=== PATIENT | female | born 1955 | race Caucasian/White ===

== ENCOUNTER 2017-04-07 09:30 | Outpatient (CLI) | payer MEDICARE ==
--- NOTE | 2017-04-07 17:37 | NM ---
TRIPLE PHASE BONE SCAN OF THE HANDS WITH DELAYED WHOLE BODY BONE SCAN: Date: 04/07/17 HISTORY: 61-year-old female with left wrist pain. Patient had bone removed for grafting on the third left fin keegan due to accident. COMPARISON: 02/04/13. RADIOPHARMACEUTICAL: 33 mCi technetium-99m MDP injected intravenously. FINDINGS: There is increased flow and blood pooling in the radial aspect of the right wrist. No abnormal blood flow or blood pooling is seen in the left wrist. Delayed images demonstrate focally increased uptake in the radial aspect of the right wrist. A focus of increased uptake is also noted in the distal right radiocarpal region. This was not seen on the previous study. Delayed images also demonstrate focally increased uptake in the radial aspect of the left wrist, likely in the scaphoid bone. The remainder of the whole body images demonstrate increased uptake consistent with degenerative chris nges in the shoulders, elbows, ankles, and feet. Periodontal disease is again seen. Tracer excretion through the kidneys is within normal limits. IMPRESSION: 1. Positive triple phase bone scan involving the radial aspect of the right wrist. Differential faby gnosis includes recent fracture, intervention, or infection. Clinical and radiographic correlation i s recommended. 2. New focal increased uptake in the distal right radiocarpal region, which is nonspecific and shou ld be evaluated with plain radiographs. 3. New focus of increased uptake in the radial aspect of the left wrist (on delayed images only) in the left scaphoid bone. Since no definite plain film abnormality is seen on the x-rays of 03/17/17 from [facility], further evaluation with MRI would be helpful. POS: TONY
== END 2017-04-07 09:31 | disposition home or self-care (01) ==
LOC: NM 09:30
PROVIDERS: ATTEND Specialist
DX: M25.532 Pain in left wrist (principal)
CPT/HCPCS: 78315; A9503

== ENCOUNTER 2018-05-05 13:47 | Outpatient (CLI) | payer MEDICARE | END 2018-05-05 13:48 | disposition home or self-care (01) | LOC: BICMAMMO 13:47 | PROVIDERS: ATTEND Specialist | DX: Z12.31 Encounter for screening mammogram for malignant neoplasm of breast (principal); Z98.890 Other specified postprocedural states | CPT/HCPCS: 77063; 77067 ==

== ENCOUNTER 2018-09-08 05:43 | Day surgery (SDC) | payer MEDICARE ==
[2018-09-07 15:29] VITALS: BMI 31.6
[2018-09-08] MEDS ORDERED: Fentanyl 100 MCG/2 ML VIAL ONE ×2 (06:18→07:15)
[2018-09-08] MEDS ORDERED: Midazolam HCl 2 mg/2 ml Vial ONE ×2 (06:18→07:15)
[2018-09-08] MEDS ORDERED: Bacitracin Zinc Ointment 30 gm TUBE ONE (06:24)
[2018-09-08] MEDS ORDERED: Sodium Chloride 0.9% 10 ML ONE (06:24)
[2018-09-08] MEDS ORDERED: Bupivacaine PF 0.5% 30 ML VIAL ONE (06:25)
[2018-09-08 06:43] LABS: #Basophils 0.1 thou/uL (0.0-0.2); #Lymphocytes 1.7 thou/uL (1.20-3.40); #Monocytes 0.3 thou/uL (0.11-0.59); #Neutrophils 3.4 thou/uL (1.40-6.50); %Basophils 1.4 % (0.0-1.0); %Eosinophils 15.8 % (0.0-10.0); %Lymphocytes 25.3 % (21.0-51.0); %Monocytes 4.8 % (0.0-10.0); %Neutrophils 52.7 % (42.0-75.0); Hemoglobin 11.9 g/dL (12.0-16.0); Mean Corpuscular HGB CONC 31.8 g/dL (32.0-36.0); Mean Corpuscular Hemoglobin 29.6 pg (27.0-31.0); Mean Corpuscular Volume 93.1 fL (78.0-98.0); Mean Platelet Volume 9.1 fL (7.4-10.4); Platelet Count 198 thou/uL (130-400); RBC Distribution Width 21.4 % (11.5-14.5); Red Blood Cell (RBC) Count 4.04 mill/uL (4.20-5.40); White Blood Cell (WBC) Count 6.5 thou/uL (4.8-10.8)
[2018-09-08 06:52] LABS: Anion Gap 9 mmol/L (10-20); BUN (Urea Nitrogen) 12 mg/dL (9.8-20.1); Calc. Creatinine Clearance 96 mL/min (70-130); Calcium 9.2 mg/dL (7.8-10.44); Carbon Dioxide 28 mmol/L (23-31); Chloride 106 mmol/L (98-107); Estimated GFR-MDRD 70; Glucose 75 mg/dL (80-115); Potassium 3.4 mmol/L (3.5-5.1); Sodium 140 mmol/L (136-145)
[2018-09-08 07:10] LABS: Anisocytosis MODERATE=16-30 cells (100X) (0-5/hpf); MDiff Complete? YES; Platelet Morphology Comment Appears Adequate; Polychromasia SLIGHT = 2-3 cells (100X) (0-2/hpf); Stomatocytes SLIGHT = 2-5 cells (100X) (0-1/hpf)
[2018-09-08] MEDS ORDERED: HYDROcodone/Acetaminophen 10/325 mg Tablet PO PRN ×2 (07:18)
[2018-09-08] MEDS ORDERED: traMADol HCl 50 MG TAB PO PRN ×2 (07:18)
[2018-09-08] MEDS ORDERED: Zolpidem Tartrate 5 MG TAB PO PRN (07:18)
[2018-09-08] MEDS ORDERED: Ondansetron PF 4 MG/2 ML Vial IVP PRN (07:18)
[2018-09-08] MEDS ORDERED: Ropivacaine 0.2% 550 ML 550 ML NERVE BLCK SCH (07:18)
[2018-09-08] MEDS ORDERED: Promethazine HCl 25 MG/ML VIAL IM PRN (07:18)
[2018-09-08] MEDS ORDERED: Fentanyl 100 MCG/2 ML VIAL IV PRN (07:19)
--- NOTE | 2018-09-08 07:59 | RAD ---
XR Chest Pa Lat STANDARD HISTORY: Preoperative evaluation COMPARISON: None. FINDINGS: The heart size is normal the lungs are well expanded without focal areas of consolidation, pneumothoraces or pleural effusions. A hiatal hernia is seen. IMPRESSION: No acute process.
--- NOTE | 2018-09-08 09:29 | RAD ---
LEFT WRIST THREE VIEWS: History: Intraoperative films. FINDINGS: This is a series of 6 C-arm images which show resection of the trapezium. IMPRESSION: Post-operative changes of the wrist with resection of the trapezium. POS: [facility]
[2018-09-08] MEDS ORDERED: Ketorolac Tromethamine 30 MG/ML VIAL ONE ×2 (11:07→13:53)
[2018-09-08] MEDS ORDERED: Ropivacaine 0.2% HCl/PF (40 MG/20 ML VIAL) ONE (13:29)
[2018-09-08] MEDS ORDERED: Ropivacaine 0.5% HCl/PF (150 MG/30 ML VIAL) ONE (13:29)
[2018-09-08] MEDS ORDERED: Lidocaine 1% PF 5 ML VIAL ONE (13:53)
[2018-09-08] MEDS ORDERED: PROPOFOL 200 MG/20 ML VIAL ONE (13:53)
[2018-09-08] MEDS ORDERED: Ondansetron PF 4 MG/2 ML Vial ONE (13:53)
[2018-09-08] MEDS ORDERED: Dexamethasone 20 MG/5 ML VIAL ONE (13:53)
--- NOTE | 2018-09-09 04:00 | OP ---
DATE OF PROCEDURE: 09/08/2018 COMPLICATIONS: None. PREOPERATIVE DIAGNOSIS: Left thumb carpometacarpal joint osteoarthritis. FINDINGS: 80% thumb both sides of the carpometacarpal joint chondral loss with subluxation of over 50% laterally. No hyperextension of the thumb metacarpophalangeal joint. PROCEDURES PERFORMED: 1. Total trapeziectomy, left carpometacarpal joint, thumb. 2. Ligament replacement with tendon interposition using flexor carpi radialis tendon, left thumb. Left upper extremity flexor carpi radialis harvest and transfer, from index finger to thumb metacarpal. C-ARM USE: Yes. TOURNIQUET TIME: 75 minutes. ESTIMATED BLOOD LOSS: 10 mL. INDICATIONS: Failed conservative treatments including injections, bracing, therapy, and dissolution of activities. All failed to produce adequate pain relief. DESCRIPTION OF PROCEDURE: After successful general endotracheal anesthesia along with a block preop, the patient had the limb prepped and draped. Time-out done appropriately. We outlined a J-shaped incision beginning just below the 3rd interspace flexor carpi radialis tendon at the wrist flexion crease all the way to 15 mm distal to the thumb metacarpal base. We carried this through skin and subcutaneous tissue, identified the internervous plane between the radial and the median nerve small terminal branches, dissected them each free and allowed them to be retracted. We visualized the thumb abductor pollicis longus and extensor pollicis brevis and protected them and then opened the joint capsule. The joint capsule was then tagged with a 2-0 Vicryl. We then completely the soft tissue from the radial side of the base of the trapezium, the scaphotrapezial joint, and then we identified the flexor carpi radialis tendons proximal to the carpometacarpal joint, dissected it from the trapezium adherent tunnel, and then opened the ulnar side of the scaphotrapeziotrapezoid joint. We then slowly elevated the trapezium, took an x-ray with a K-wire inside to confirm the trapezium and then performed complete trapeziectomy. The posteromedial capsule was tagged with a [id number] long 3-0 Prolene for later reconstruction. We turned our attention to the thumb base where we rotated the thumbnail into the plane palm and then identified the ulnar side of the thumb near the first and second web space deep, removed all osteophytes. We then began approximately 12 mm proximal to the lateral edge of the thumb base, a drill hole was centered in the sagittal plane in the middle of the bone and carried this to the middle of bone to the opposite side just above the reflection. We then slowly curetted this to make it larger to receive approximately 3.5 to 4 mm wide flexor carpi radialis tendon. Using two separate incisions, we identified the flexor carpi radialis tendon in the forearm and the wrist, from the muscle bed, harvested back into the proximal wound of the wrist. Then removed all muscular soft tissue. We then trimmed the tendon approximately 10% to allow to slide through the defect in the base of the thumb metacarpal, then passed it through without complication, held it partially tensioned and rotated the thumb for position to reduce or slightly over reduce the thumb left articulation and alignment. We then pinned the thumb metacarpal to the index finger metacarpal x2 K-wires, sutured the FCR to the sidewall fascia of the thumb metacarpal base and to the abductor pollicis longus in two spots, placed it along the central portion of the thumb metacarpal base inside the joint space created by the resection arthroplasty and sutured it with three 4-0 Prolene. Once this was done, we then sutured it to itself, took 2 Juventino needles holding the #3 Prolene had been placed in the deep ulnar posterior part of the capsule and then reeved the remaining tendon through this using Juventino needles and pulled the sutures through and tied it with excellent security. We released the tourniquet, we closed the joint capsule which had been tagged with a 2-0 Vicryl. Using the fascia, we closed the thenar musculature with the 2-0 Vicryl, and then subcutaneous closure at the primary surgery site and then proximal to wound with a 4-0 Monocryl and then used 3-0 nylon interrupted mattress pattern to close all skin/mid epidermal wounds. The patient left the operating room without evidence of anesthetic or operative complication. Job ID: [id number]
== END 2018-09-08 12:30 | disposition home or self-care (01) ==
LOC: SDC 05:43
PROVIDERS: ATTEND Orthopaedic Surgery Hand Surgery
PROC: 0LX80ZZ Transfer Left Hand Tendon, Open Approach (ICD-10-PCS; principal; 2018-09-08)
PROC: 0LU807Z Supplement Left Hand Tendon with Autologous Tissue Substitute, Open Approach (ICD-10-PCS; 2018-09-08)
PROC: 0RQT0ZZ Repair Left Carpometacarpal Joint, Open Approach (ICD-10-PCS; 2018-09-08)
DX: M18.12 Unilateral primary osteoarthritis of first carpometacarpal joint, left hand (principal); M19.031 Primary osteoarthritis, right wrist; D64.9 Anemia, unspecified; G43.909 Migraine, unspecified, not intractable, without status migrainosus; I10 Essential (primary) hypertension; F32.9 Major depressive disorder, single episode, unspecified; F43.10 Post-traumatic stress disorder, unspecified; Z98.890 Other specified postprocedural states; Z88.2 Allergy status to sulfonamides; Z79.899 Other long term (current) drug therapy
CPT/HCPCS: 25447; 26483; 71046; 73110; 76000; 80048; 85025; 93005; A4306; 36415; 93010; J0690; J1100; J1885; J2001; J2250; J2405; J2704; J2795; J3010; J3490; S0020

== ENCOUNTER 2018-09-30 12:54 | Day surgery (SDC) | payer MEDICARE ==
[2018-09-30] MEDS ORDERED: Sodium Chloride 0.9% 0 ML ONE (15:52)
[2018-09-30] MEDS ORDERED: Bacitracin Zinc Ointment 30 gm TUBE ONE (15:52)
[2018-09-30] MEDS ORDERED: Bupivacaine PF 0.5% 30 ML VIAL ONE (15:52)
[2018-09-30] MEDS ORDERED: Fentanyl 100 MCG/2 ML VIAL ONE (16:18)
[2018-09-30] MEDS ORDERED: PROPOFOL 200 MG/20 ML VIAL ONE (16:30)
[2018-09-30] MEDS ORDERED: Lidocaine 1% PF 5 ML VIAL ONE (16:30)
[2018-09-30] MEDS ORDERED: Ketorolac Tromethamine 30 MG/ML VIAL ONE (17:02)
[2018-09-30] MEDS ORDERED: HYDROcodone/Acetaminophen 5/325 mg Tablet ONE (17:21)
--- NOTE | 2018-09-30 19:56 | RAD ---
LEFT THUMB TWO VIEWS INTRAOPERATIVE FLUOROSCOPY 09/30/18 HISTORY: Hardware removal. FINDINGS/IMPRESSION: Intraoperative fluoroscopy was provided for hardware removal as performed by Dr. Alejandre. Spot fluor oscopic images show metallic pins to have been removed from the base of the first metacarpal. Fluoro time: 4 seconds. POS: CET
--- NOTE | 2018-10-01 09:49 | OP ---
DATE OF PROCEDURE: 09/30/2018 PREOPERATIVE DIAGNOSIS: Left painful deep wire, thumb metacarpal, index finger metacarpal after ligament replacement, tendon interposition, CMC arthroplasty. POSTOPERATIVE DIAGNOSES: Left painful deep wire, thumb metacarpal, index finger metacarpal after ligament replacement, tendon interposition, CMC arthroplasty. FINDINGS: K-wire removed, the arthroplasty in nearly anatomic position. PROCEDURE PERFORMED: C-arm supervision through removal of deep buried wire. DESCRIPTION OF PROCEDURE: After successful general endotracheal anesthesia, the limb was prepped and draped. We then brought the C-arm to the field, identified the mass, then made an incision over it and dissected down 6 mm until we could feel it. Then, we visualized using the C-arm and removed the K-wire without complications. Radiographs after the wires removed revealed nearly anatomic position of the first and second metacarpal distance and relationship with adequate superior position from the trapezium shadow. There was at least 1 cm space between the first metacarpal and the scaphoid end. Hemostasis was obtained with a little small 3 mm incision. Two small Steri-Strips were used. A small dressing applied with thumb spica and the patient will go to therapist. Tramadol will be given for pain. Job ID: [id number]
== END 2018-09-30 19:30 | disposition home or self-care (01) ==
LOC: SDC 12:54
PROVIDERS: ATTEND Orthopaedic Surgery Hand Surgery
PROC: 0RP Upper Joints, Removal (ICD-10-PCS; principal; 2018-09-30)
DX: T84.84XA Pain due to internal orthopedic prosthetic devices, implants and grafts, initial encounter (principal)
CPT/HCPCS: 76000; J0690; J1885; J2001; J2704; J3010; J3490; S0020

== ENCOUNTER 2018-11-19 07:35 | Outpatient (CLI) | payer MEDICARE ==
--- NOTE | 2018-11-19 08:14 | ULT ---
Exam: Pelvic ultrasound including Transabdominal, Transvaginal, imaging: HISTORY: Multiple nodules palpated and seen. History of a complete hysterectomy. COMPARISON: None FINDINGS: The uterus is surgically absent. There does appear to be a residual cervix containing multiple hypoechoic masses or nodules which have a fairly typical appearance for complicated nabothian cysts. The largest measures 0.7 x 2 cm. No associated blood flow within these nodular areas. No abscess or significant abnormal fluid collection. IMPRESSION: Status post hysterectomy. Hypoechoic circumscribed nodular foci within the residual cervix evidence f or complicated nabothian cysts. No evidence for other significant acute process.
== END 2018-11-19 07:36 | disposition home or self-care (01) ==
LOC: BICULT 07:35
PROVIDERS: ATTEND Specialist
DX: N88.8 Other specified noninflammatory disorders of cervix uteri (principal); R87.619 Unspecified abnormal cytological findings in specimens from cervix uteri; Z90.710 Acquired absence of both cervix and uterus
CPT/HCPCS: 36415; 76856; 82728; 82746

== ENCOUNTER 2019-01-06 08:14 | Outpatient (CLI) | payer MEDICARE ==
--- NOTE | 2019-01-06 09:27 | MRI ---
MRI LUMBAR SPINE WITHOUT CONTRAST: HISTORY: Lumbar spinal stenosis. COMPARISON: None. FINDINGS: Appropriate T1 marrow signal intensity of the lumbar vertebrae. Lumbar spine vertebral body height i s maintained. No fracture. No significant STIR hyperintensity to suggest vertebral body edema/injury. There is 4 mm of anterolisthesis of L4 upon L5 and 4.6 mm of anterolisthesis of L5 upo n S1. Appropriate signal intensity of the paraspinal muscles. Appropriate signal intensity of the solid or darrius. Small cysts in the left and right renal pelvis are noted. The conus medullaris terminates at the upper aspect of L1. T12-L1: Adequate disc hydration. No significant central canal stenosis. Neural foramina are patent . L1-L2: Disc desiccation with mild loss of disc space height. Minimal ligament flavum thickening and facet hypertrophy. No significant central canal stenosis or significant neural foraminal narrowing. L2-L3: Moderate loss of disc space height. Broad-based disc bulge, ligamentum flavum thickening, an d facet hypertrophy result in mild central canal stenosis. Fluid in both facet joints. Mild bilateral foraminal narrowing. L3-L4: Mild loss of disc space height. Broad-based disc bulge, ligament flavum thickening and facet hypertrophy result in mild to moderate central canal stenosis. Mild bilateral foraminal narrowing. L4-L5: Desiccation with mild loss of disc space height. Broad-based disc bulge, ligament flavum thi ckening, and facet hypertrophy result in mild to moderate central canal stenosis. Mild bilateral foraminal narrowing. L5-S1: There is disc desiccation without significant loss of disc space height. Generalized disc bu lge flattens the ventral thecal sac and results in mild central canal stenosis. There is bilateral facet hypertrophy. Small amount of fluid in the left facet joint. Mild right and [id number] l eft neural foraminal narrowing. IMPRESSION: 1. Degenerative changes lumbar spine as detailed above. 2. Grade 1 anterolisthesis of L4 upon L5 and L5 upon S1. Transcribed Date/Time: 01/06/2019 9:57 AM
== END 2019-01-06 08:15 | disposition home or self-care (01) ==
LOC: BICMRI 08:14
PROVIDERS: ATTEND Orthopaedic Surgery Hand Surgery
DX: M48.061 Spinal stenosis, lumbar region without neurogenic claudication (principal); M47.816 Spondylosis without myelopathy or radiculopathy, lumbar region; M47.817 Spondylosis without myelopathy or radiculopathy, lumbosacral region; M43.16 Spondylolisthesis, lumbar region; M43.17 Spondylolisthesis, lumbosacral region
CPT/HCPCS: 72148

== ENCOUNTER 2019-01-12 12:20 | Outpatient (CLI) | payer MEDICARE ==
--- NOTE | 2019-01-12 13:01 | RAD ---
EXAM: XR Lumbar Spine Min 4 View DATE: 01/12/2019 12:00 AM INDICATION: Spinal stenosis of lumbar spinal region and spinal listhesis COMPARISON: MR the lumbar spine dated January 06, 2019 FINDING: There is grade 1 anterolisthesis of L4 and L5 that is slightly accentuated with flexion but does not appreciably reduce with extension. There is moderate multilevel disc degenerative and facet osteoarthritic changes most pronounced at L4-5 and L5-S1. There are scattered vascular calcific ations. IMPRESSION:Mild abnormal translational motion at L4-L5 with grade 1 anterolisthesis
== END 2019-01-12 12:21 | disposition home or self-care (01) ==
LOC: RAD 12:20
PROVIDERS: ATTEND Nurse Practitioner Family
DX: M43.16 Spondylolisthesis, lumbar region (principal)
CPT/HCPCS: 72110

== ENCOUNTER 2019-03-26 11:31 | Outpatient (CLI) | payer MEDICARE ==
--- NOTE | 2019-03-26 12:14 | RAD ---
XR Cervical Sp Com W/Obl Fl/Ex History: Cervicalgia Comparison: None. Findings: There is mild degenerative disc space height loss at C4-5 and C5-6. 2 mm C3-4, C4-5 and C5- C6 anterolisthesis. Severe facet arthrosis C2-C5. No acute fracture. Mild increased translation with flexion-extension C3-C6. No significant osseous neural foraminal narrowing. Impression: Moderate degenerative changes with a mild increase translation C3-C6.
== END 2019-03-26 11:32 | disposition home or self-care (01) ==
LOC: BICRAD 11:31
PROVIDERS: ATTEND Specialist
DX: M54.2 Cervicalgia (principal); M47.812 Spondylosis without myelopathy or radiculopathy, cervical region
CPT/HCPCS: 72052

== ENCOUNTER 2019-07-13 09:38 | Emergency (ER) | payer MEDICARE ==
[2019-07-13 11:50] LABS: ALT (SGPT) 24 U/L (8-55); AST (SGOT) 30 U/L (5-34); Albumin 4.4 g/dL (3.4-4.8); Alkaline Phosphatase 96 U/L (40-110); Anion Gap 17 mmol/L (10-20); BUN (Urea Nitrogen) 16 mg/dL (9.8-20.1); Bilirubin, Total 1.4 mg/dL (0.2-1.2); Calc. Creatinine Clearance 0 mL/min (70-130); Calcium 9.9 mg/dL (7.8-10.44); Carbon Dioxide 22 mmol/L (23-31); Chloride 103 mmol/L (98-107); Estimated GFR-MDRD 52; Globulin 3.5 g/dL (2.4-3.5); Glucose 87 mg/dL (80-115); Potassium 4.7 mmol/L (3.5-5.1); Protein, Total 7.9 g/dL (6.0-8.3); Sodium 137 mmol/L (136-145)
[2019-07-13 12:50] LABS: #Basophils 0.1 thou/uL (0.0-0.2); #Eosinphils 0.3 thou/uL (0.0-0.7); #Lymphocytes 1.2 thou/uL (1.20-3.40); #Monocytes 0.2 thou/uL (0.11-0.59); %Basophils 1.3 % (0.0-1.0); %Eosinophils 4.1 % (0.0-10.0); %Monocytes 3.3 % (0.0-10.0); %Neutrophils 73.4 % (42.0-75.0); Hemoglobin 13.7 g/dL (12.0-16.0); Mean Corpuscular Hemoglobin 29.3 pg (27.0-31.0); Mean Corpuscular Volume 94.6 fL (78.0-98.0); Mean Platelet Volume 8.3 fL (7.4-10.4); Platelet Count 212 thou/uL (130-400); RBC Distribution Width 12.3 % (11.5-14.5); Red Blood Cell (RBC) Count 4.69 mill/uL (4.20-5.40); White Blood Cell (WBC) Count 6.8 thou/uL (4.8-10.8)
[2019-07-13 12:55] LABS: Acetaminophen Less than 6.0 mcg/mL (10.0-30.0); Alcohol Less than 10 mg/dL (Less than 10); Salicylate Less than 8.0 mg/dL (15.0-30.0)
[2019-07-13 12:58] LABS: Bilirubin Negative (Negative); Blood, Urine Negative (Negative); Clarity Turbid (Clear); Glucose, Urine (Dipstick) Normal (Negative); Leukocyte Negative Leu/uL (Negative); Nitrite Negative (Negative); Protein, Urine (Dipstick) 20 mg/dL (Neg-Trace); Urobilinogen Normal mg/dL (Less than 2)
--- NOTE | 2019-07-13 13:00 | CT ---
CT HEAD WITHOUT CONTRAST: DATE: 07/13/2019. COMPARISON: None. HISTORY: Altered mental status. TECHNIQUE: Axial CT imaging at 5 mm intervals from vertex through the skull base without contrast. FINDINGS: The imaged paranasal sinuses and mastoid air cells are well aerated. There is no displaced calvarial fracture, intracranial hemorrhage, midline shift, or mass effect. IMPRESSION: No intracranial hemorrhage or displaced calvarial fracture. POS: [facility]
--- NOTE | 2019-07-13 13:05 | RAD ---
LEFT SHOULDER 3 VIEWS: Date: 07/13/2019 HISTORY: Shoulder pain. FINDINGS: Minimal arthrosis of the AC joint. No signs of fracture or dislocation. IMPRESSION: No acute findings. Fairly minimal arthrosis of the AC joint. POS: JUSTINE
--- NOTE | 2019-07-13 13:05 | CT ---
CT OF CERVICAL SPINE PERFORMED WITHOUT CONTRAST ENHANCEMENT: HISTORY: Altered mental status. Neck pain. FINDINGS: The vertebral bodies are normal in height. There is straightening to the normal cervical curve. The re is minimal anterolisthesis of C3 on C4 and C4 on 5. There are prominent degenerative facet changes at these levels. Facets do appear to be in normal alignment. There is no evidence of a fracture. C2-3: Unremarkable. C3-4: Anterolysis at this level and prominent left-sided facet changes associated with some moderate left foraminal narrowing. C4-5: No significant canal or any definite foraminal narrowing. C5-6: Again, more prominent left-sided facet changes are seen with some borderline left foraminal na rrowing. C6-7: Unremarkable. C7-T1: Unremarkable. IMPRESSION: Moderate arthritic changes of the spine as described above. No acute changes. POS: [facility]
== END 2019-07-13 14:15 | disposition home or self-care (01) ==
LOC: ERS 09:38
DX: R40.0 Somnolence (principal); T40.4X5A Adverse effect of other synthetic narcotics, initial encounter; D64.9 Anemia, unspecified; F43.10 Post-traumatic stress disorder, unspecified; Z79.899 Other long term (current) drug therapy
CPT/HCPCS: 70450; 72125; 80053; 80307; 81003; 84443; 85025; 93005

== ENCOUNTER 2019-07-16 10:03 | Inpatient (IN) | payer MEDICARE ==
--- NOTE | 2019-07-16 11:08 | RAD ---
XR Chest 1 View Portable HISTORY: Altered mental status COMPARISON: None FINDINGS: The heart size is at upper limits of normal. The lungs are well expanded without focal area s of consolidation, pneumothorax or pleural effusions. IMPRESSION: No radiographic evidence of acute cardiopulmonary process.
[2019-07-16 11:23] LABS: #Lymphocytes 0.7 thou/uL (1.20-3.40); #Monocytes 0.3 thou/uL (0.11-0.59); #Neutrophils 6.6 thou/uL (1.40-6.50); %Basophils 0.4 % (0.0-1.0); %Eosinophils 0.4 % (0.0-10.0); %Lymphocytes 9.4 % (21.0-51.0); %Monocytes 3.8 % (0.0-10.0); %Neutrophils 86.1 % (42.0-75.0); Hemoglobin 14.5 g/dL (12.0-16.0); Mean Corpuscular HGB CONC 33.4 g/dL (32.0-36.0); Mean Corpuscular Volume 92.7 fL (78.0-98.0); Mean Platelet Volume 8.6 fL (7.4-10.4); Platelet Count 213 thou/uL (130-400); RBC Distribution Width 12.3 % (11.5-14.5); Red Blood Cell (RBC) Count 4.67 mill/uL (4.20-5.40); White Blood Cell (WBC) Count 7.6 thou/uL (4.8-10.8)
--- NOTE | 2019-07-16 11:48 | CT ---
CT BRAIN WITHOUT CONTRAST: HISTORY:Altered mental status COMPARISON:07/13/2019 FINDINGS: No evidence of acute infarct, hemorrhage, midline shift or abnormal extra-axial fluid collections is seen. The ventricular size is appropriate and the basilar cisterns are patent. The bony calvarium is intact. The visualized paranasal sinuses and mastoid air cells are well aerated. IMPRESSION: No CT evidence of acute intracranial process.
[2019-07-16 11:50] LABS: ALT (SGPT) 21 U/L (8-55); AST (SGOT) 22 U/L (5-34); Acetaminophen Less than 6.0 mcg/mL (10.0-30.0); Albumin 4.4 g/dL (3.4-4.8); Alcohol Less than 10 mg/dL (Less than 10); Alkaline Phosphatase 96 U/L (40-110); Anion Gap 14 mmol/L (10-20); BUN (Urea Nitrogen) 11 mg/dL (9.8-20.1); Bilirubin, Total 1.3 mg/dL (0.2-1.2); CK (CPK) 153 U/L (29-168); Calc. Creatinine Clearance 0 mL/min (70-130); Carbon Dioxide 23 mmol/L (23-31); Chloride 104 mmol/L (98-107); Estimated GFR-MDRD 69; Glucose 115 mg/dL (80-115); Lipase 22 U/L (8-78); Potassium 4.2 mmol/L (3.5-5.1); Protein, Total 7.4 g/dL (6.0-8.3); Salicylate Less than 8.0 mg/dL (15.0-30.0); Sodium 137 mmol/L (136-145)
[2019-07-16] MEDS ORDERED: Ondansetron PF 4 MG/2 ML Vial ONE (14:39)
[2019-07-16 14:58] LABS: Amphetamine Not Detected (NotDetected); Barbiturates Screen Not Detected (NotDetected); Benzodiazepine Screen Detected (NotDetected); Cocaine Metabolite Screen Not Detected (NotDetected); Medtox Control Line Valid? VALID (VALID); Medtox Reader # READER 4; Methadone Not Detected (NotDetected); Methamphetamine Not Detected (NotDetected); Opiate Screen Not Detected (NotDetected); Oxycodone Screen Not Detected (NotDetected); Phencyclidine (PCP) Not Detected (NotDetected); THC/Cannabinoid Screen Not Detected (NotDetected); Tricyclic Screen Not Detected (NotDetected)
[2019-07-16 15:03] LABS: Bacteria/HPF None Seen HPF (None Seen); Bilirubin Negative (Negative); Blood, Urine Negative (Negative); Clarity Clear (Clear); Glucose, Urine (Dipstick) Normal (Negative); Leukocyte Negative Leu/uL (Negative); Mucous/LPF 2+ LPF (<2+); Nitrite Negative (Negative); Protein, Urine (Dipstick) 30 mg/dL (Neg-Trace); RBC/HPF 0-3 HPF (0-3); Squamous Epithelial 0-3 HPF (0-3); Urobilinogen 6 mg/dL (Less than 2); WBC/HPF 0-3 HPF (0-3)
[2019-07-16] MEDS ORDERED: Lorazepam 2 MG/ML VIAL ONE (16:03)
[2019-07-16] MEDS ORDERED: Lorazepam 2 MG/ML VIAL SLOW IVP PRN (20:10)
[2019-07-16] MEDS ORDERED: Ondansetron PF 4 MG/2 ML Vial SLOW IVP PRN (20:11)
[2019-07-16] MEDS: Dextrose 5 % And 0.9 % NaCl 1,000 ML IV SCH (20:32)
[2019-07-17] MEDS: Dextrose 5 % And 0.9 % NaCl 1,000 ML IV SCH ×3 (04:13→21:30)
[2019-07-17] MEDS ORDERED: Acetaminophen 325 MG TAB PO PRN (08:21)
[2019-07-17] MEDS: Lorazepam 2 MG/ML VIAL SLOW IVP SCH ×3 (11:54→23:32)
--- NOTE | 2019-07-17 12:50 | HP ---
CHIEF COMPLAINT ON ADMISSION: Altered mental status. HISTORY OF PRESENT ILLNESS: The patient is a 63-year-old female, who began using Talwin approximately 7 days prior to admission for neck pain. This caused GI distress with nausea and vomiting, such that the then held her usual medications including Xanax and venlafaxine, at which point, the patient then became more ill. He eventually took her to the emergency room where all her lab work was unremarkable and she was released home. She had 2 days of improvement and then began to deteriorate mentally and was unable to hold anything down p.o. and she began to deteriorate more at that point, such that he returned her to the emergency room on the day of admission, where again lab work returns normal including CT scan. She had apparently fallen and hit her head prior to coming to this hospital visit. No loss of consciousness and a CT of her head returned normal, but she only knew her name, did not know where she was and did not know the date. On physical exam, she had jerking movements and was not able to ambulate, requiring hospitalization. PAST MEDICAL HISTORY: Has been significant for severe anemia in the past, hypothyroidism, hyperlipidemia, and restless legs syndrome. PAST SURGICAL HISTORY: Includes right foot surgery, left hand surgery, and hysterectomy. PSYCHIATRIC HISTORY: Her psychiatric history has been extensive with post- traumatic stress disorder and severe anxiety disorder, chronic depression. She has bipolar type 2 disorder. SOCIAL HISTORY: Denies alcohol, smoking, or illicit drug use. ALLERGIES: TO SULFA. MEDICATIONS: On admission include; 1. Tizanidine 4 mg for neck spasm. 2. Estradiol 1 mg daily. 3. Prozac 20 mg, she would take 3 a day. 4. [place], she will take 150 mg three p.o. daily. 5. Xanax 1 mg b.i.d. 6. Levothyroxine 50 mcg daily. 7. Venlafaxine 75 mg b.i.d. 8. Rosuvastatin 10 mg at bedtime. 9. Ropinirole 1 mg at bedtime. Most recently, Talwin, which she received only 2 days dosing and stopped. REVIEW OF SYSTEMS: CONSTITUTIONAL: Significant for sweating, agitation, and lethargy. HEENT: No drainage from eyes, ears, nose, or throat. CHEST: Denies cough or dyspnea. CARDIOVASCULAR: Denies chest pain or palpitations. GASTROINTESTINAL: Positive for nausea and vomiting. No diarrhea. GENITOURINARY: Denies dysuria or blood in urine or stool. MUSCULOSKELETAL: Complains of neck pain and other musculoskeletal aches in general. SKIN: No new rashes or lesions. NEUROLOGIC: Significant for altered mental status. PHYSICAL EXAMINATION: VITAL SIGNS: At the time of admission, blood pressure 181/113, pulse 98, respirations 14, temperature 99.2, and O2 saturation 97% on room air. GENERAL: This is a well-developed, well-nourished, female, who is lethargic at the time of exam, mumbling incoherent words. HEENT: Normocephalic, atraumatic. Pupils are equal, round, and reactive to light. TMs, nares, and pharynx are clear. NECK: Somewhat stiff. CHEST: Clear to auscultation. HEART: Regular rate and rhythm, tachycardic. BREASTS: Deferred. ABDOMEN: Soft. Unable to appreciate organomegaly. GENITOURINARY: Deferred. EXTREMITIES: The foot shows painless range of motion. Moves all extremities without difficulty. Normal range of motion. NEUROLOGIC: Cranial nerves, unable to test at this time. Gait and cerebellar function, unable to test at this time. Seems hyperreflexic and tremors are noted. SKIN: Shows mild diaphoresis. No acute rashes. LABORATORY DATA: Lab work thus far shows WBC 7.6, hemoglobin 14.5, hematocrit 43.2 with platelet at 213. Sodium 137, potassium 4.2, chloride 104, CO2 of 23, BUN 11, creatinine 0.83 with a GFR of 69, and glucose 115. Liver functions unremarkable. Cardiac enzymes negative. TSH 1.07. Urinalysis shows 20 ketones. No acute infection. Toxicology, positive for benzodiazepines only. No alcohol or other drugs noted. ASSESSMENT: 1. Toxic encephalopathy due to medications, etiology is a med combination leading to serotonin syndrome versus acute withdrawal from venlafaxine. (pt had decreased her Xanax dosage weeks before w/o incident) 2. Dehydration. PLAN: Continue IV fluids and IV support. We use Ativan scheduled to minimize withdrawal symptoms. We will serially re-evaluate her. We will get lithium levels and withdraw from serotonin agents and serially re-evaluate her. Job ID: [id number] [facility]
[2019-07-17 19:47] VITALS: BMI 29.0
[2019-07-18 05:17] LABS: #Eosinphils 0.1 thou/uL (0.0-0.7); #Lymphocytes 0.9 thou/uL (1.20-3.40); #Monocytes 0.4 thou/uL (0.11-0.59); #Neutrophils 5.3 thou/uL (1.40-6.50); %Basophils 0.6 % (0.0-1.0); %Eosinophils 1.4 % (0.0-10.0); %Monocytes 5.7 % (0.0-10.0); %Neutrophils 78.4 % (42.0-75.0); Hemoglobin 13.9 g/dL (12.0-16.0); Mean Corpuscular HGB CONC 33.4 g/dL (32.0-36.0); Mean Corpuscular Hemoglobin 31.4 pg (27.0-31.0); Mean Corpuscular Volume 93.8 fL (78.0-98.0); Mean Platelet Volume 8.8 fL (7.4-10.4); Platelet Count 175 thou/uL (130-400); RBC Distribution Width 12.4 % (11.5-14.5); Red Blood Cell (RBC) Count 4.42 mill/uL (4.20-5.40); White Blood Cell (WBC) Count 6.7 thou/uL (4.8-10.8)
[2019-07-18 05:36] LABS: Anion Gap 11 mmol/L (10-20); BUN (Urea Nitrogen) 5 mg/dL (9.8-20.1); Calc. Creatinine Clearance 99 mL/min (70-130); Calcium 9.1 mg/dL (7.8-10.44); Carbon Dioxide 23 mmol/L (23-31); Chloride 109 mmol/L (98-107); Estimated GFR-MDRD 78; Glucose 111 mg/dL (80-115); Potassium 3.4 mmol/L (3.5-5.1); Sodium 140 mmol/L (136-145)
[2019-07-18] MEDS: Lorazepam 2 MG/ML VIAL SLOW IVP SCH (06:16)
[2019-07-18] MEDS: Dextrose 5 % And 0.9 % NaCl 1,000 ML IV SCH ×3 (06:16→20:14)
[2019-07-18] MEDS ORDERED: Lorazepam 2 MG/ML VIAL SLOW IVP PRN (10:54)
[2019-07-18] MEDS ORDERED: Ramipril 5 MG CAP PO ONE (11:00)
[2019-07-18] MEDS: busPIRone HCl 5 MG TAB PO SCH (20:15)
[2019-07-18] MEDS: Lorazepam 1 MG TAB PO SCH (20:15)
[2019-07-19] MEDS: Ramipril 5 MG CAP PO SCH (10:30)
[2019-07-19] MEDS: Bupropion 150 MG XL TAB PO SCH (10:31)
[2019-07-19] MEDS: busPIRone HCl 5 MG TAB PO SCH ×2 (10:31→20:56)
[2019-07-19] MEDS: Lorazepam 1 MG TAB PO SCH ×2 (10:31→20:56)
[2019-07-19] MEDS: lamoTRIgine 25 MG TAB PO SCH (10:31)
[2019-07-19] MEDS: Dextrose 5 % And 0.9 % NaCl 1,000 ML IV SCH (21:39)
[2019-07-20] MEDS ORDERED: cloNIDine 0.1 MG TAB PO PRN (01:13)
[2019-07-20 08:12] VITALS: BP 148/95; TEMP 98.3
[2019-07-20] MEDS: Lorazepam 1 MG TAB PO SCH (09:40)
[2019-07-20] MEDS: Ramipril 5 MG CAP PO SCH (09:41)
[2019-07-20] MEDS: Bupropion 150 MG XL TAB PO SCH (09:41)
[2019-07-20] MEDS: busPIRone HCl 5 MG TAB PO SCH (09:42)
[2019-07-20] MEDS: lamoTRIgine 25 MG TAB PO SCH (09:42)
--- NOTE | 2019-07-22 00:27 | PQF ---
TAMEKA REYNOSO MICHAEL E MD [id number] [facility] [id number] CLINICAL DOCUMENTATION CLARIFICATION FORM: POST DISCHARGE Addendum to original discharge summary date: ____ Late entry note date: __ DATE: 07/22/2019 ATTN: Thomas Yousif Please exercise your independent, professional judgment in responding to the clarification form. Clinical indicators are provided on the bottom of this form for your review In your clinical opinion based on clinical findings below, can you please identify the etiology of Toxic Encephalopathy if due to: Please check appropriate box(s): [ x ] Adverse effect of Venlafaxine [ ] Toxic effect of Venlafaxine [ ] Underdosing of Xanax [ ] Serotonin syndrome due to Adverse effect of Venlafaxine and Xanax [ x ] Other diagnosis ___serotonin syndrome set off by Talwin when added to [place], Prozac, Effexor [ ] Unable to determine For continuity of documentation, please document condition throughout progress notes and discharge summary. Thank You. CLINICAL INDICATORS - SIGNS / SYMPTOMS / LABS Laboratory Toxicology 07/16 Benzodiazepines Detected, 07/17 [place] 0.342 ED Notes p1 07/16 presents to the ED for mental status changes after not being able to take her medications since yesterday ED Notes p1 07/16 suspected reaction to pentazocine ED Notes p4 07/16 possible benzodiazepine withdrawal H&P p1 07/16 Dr Khalil pt began using Talwin approximately 7 days prior to admission for neck pain. This caused GI distress with n/v, such that the held her usual medications including Xanax and Venlafaxine, at which point, the pt became more ill H&P p1 07/16 Dr Khalil On physical exam, she had jerking movements and was not able to ambulate, requiring hospitalization H&P p2 07/16 Dr Khalil ROS Constitutional: Significant for sweating, agitation and lethargy H&P p2 07/16 Dr Khalil Physican examination General: lethargic at the time of exam, mumbling incoherent words H&P p3 07/16 Dr Khalil Toxic Encephalopathy due to medications, etiology med combination leading to serotonin syndrome versus acute withdrawal from Venlafaxine. Pt had decreased her Xanax dosage weeks before w/o incident RISK FACTORS H&P p1 07/16 52-year old female H&P p1 07/16 PTDS H&P p1 07/16 Severe anxiety disorder H&P p1 07/16 Chronic depression H&P p1 07/16 Bipolar type 2 disorder H&P p1 07/16 Hypothyroidism H&P p1 07/16 Hyperlipidemia H&P p1 07/16 RLS H&P p3 07/16 Dehydration TREATMENTS: JUL 25 IV Ativan 2mg JUL 25 IV Zofran 4mg JUL 25 BuSpar 7.5mg po JUL 25 Wellbutrin 150mg po JUL 25 Lamictal 25mg po JUL 25 - IVF H&P p3 07/16 Will get [place] levels and withdraw from Serotonin agents and serially re-evalate her Collected 07/16 CT of brain (This form is maintained as a part of the permanent medical record) 2014 [employer], [employer]. All Rights Reserved [email or web address]
== END 2019-07-20 10:05 | disposition home or self-care (01) | DRG 56 ==
LOC: ERS 10:03 → SURG A 19:41 → OBSVTOIN 19:41
PROVIDERS: ADMIT Specialist; ATTEND Specialist
DX: G25.79 Other drug induced movement disorders (principal); G92 Toxic encephalopathy; F31.81 Bipolar II disorder; T43.225A Adverse effect of selective serotonin reuptake inhibitors, initial encounter; E86.0 Dehydration; E03.9 Hypothyroidism, unspecified; E78.5 Hyperlipidemia, unspecified; G25.81 Restless legs syndrome; F41.1 Generalized anxiety disorder; F43.10 Post-traumatic stress disorder, unspecified; T43.215A Adverse effect of selective serotonin and norepinephrine reuptake inhibitors, initial encounter; T40.4X5A Adverse effect of other synthetic narcotics, initial encounter; T43.595A Adverse effect of other antipsychotics and neuroleptics, initial encounter; Z79.899 Other long term (current) drug therapy; Z79.890 Hormone replacement therapy; Z88.2 Allergy status to sulfonamides
CPT/HCPCS: 36415; 51701; 70450; 71045; 72125; 80048; 80053; 80178; 80306; 80307; 81003; 81015; 82550; 83690; 84443; 84484; 85025; 93005; 96361; 96374; 96375; A4353; J2060; J2405

== ENCOUNTER 2019-12-16 15:34 | Inpatient (IN) | payer MEDICARE, OTHER ==
[2019-12-16] MEDS ORDERED: Acetaminophen 500 MG TAB ONE (15:54)
[2019-12-16] MEDS ORDERED: cefTRIAXone\\ROCEPHIN 2 GM VIAL ONE (15:54)
--- NOTE | 2019-12-16 16:32 | CT ---
Exam: Head CT without contrast HISTORY: Headache. Fever. COMPARISON: 07/16/2019 FINDINGS: Hemorrhage: No intraparenchymal hemorrhage or extra-axial hematoma. Brain parenchyma: Cortical loera-white matter differentiation is preserved. No mass effect or midline shift. Basilar cisterns are patent.Minimal periventricular white matter hypodensities due to chronic small vessel ischemic change Ventricular system: Ventricles and sulci are patent and symmetric. Calvarium: Intact. Sinuses and mastoid air cells: Adequate aeration. IMPRESSION: No acute intracranial process.
[2019-12-16] MEDS ORDERED: Morphine 4 MG/ML VIAL ONE ×2 (17:14→21:22)
[2019-12-16 17:27] LABS: #Eosinphils 0.1 thou/uL (0.0-0.7); #Lymphocytes 0.5 thou/uL (1.20-3.40); #Monocytes 0.2 thou/uL (0.11-0.59); #Neutrophils 1.1 thou/uL (1.40-6.50); %Basophils 0.5 % (0.0-1.0); %Lymphocytes 26.9 % (21.0-51.0); %Monocytes 10.1 % (0.0-10.0); %Neutrophils 57.5 % (42.0-75.0); Hemoglobin 12.2 g/dL (12.0-16.0); Mean Corpuscular HGB CONC 32.6 g/dL (32.0-36.0); Mean Corpuscular Hemoglobin 29.8 pg (27.0-31.0); Mean Corpuscular Volume 91.5 fL (78.0-98.0); Mean Platelet Volume 9.1 fL (7.4-10.4); Platelet Count 186 thou/uL (130-400); RBC Distribution Width 12.5 % (11.5-14.5); Red Blood Cell (RBC) Count 4.08 mill/uL (4.20-5.40)
[2019-12-16 17:54] LABS: ALT (SGPT) 15 U/L (8-55); AST (SGOT) 22 U/L (5-34); Albumin 3.7 g/dL (3.4-4.8); Alkaline Phosphatase 79 U/L (40-110); Anion Gap 12 mmol/L (10-20); BUN (Urea Nitrogen) 12 mg/dL (9.8-20.1); Bilirubin, Total 0.2 mg/dL (0.2-1.2); CRP (Inflammatory) 0.89 mg/dL (= or < 0.5); Calc. Creatinine Clearance 0 mL/min (70-130); Calcium 8.5 mg/dL (7.8-10.44); Carbon Dioxide 23 mmol/L (23-31); Chloride 108 mmol/L (98-107); Estimated GFR-MDRD 67; Globulin 2.8 g/dL (2.4-3.5); Glucose 125 mg/dL (80-115); Potassium 3.7 mmol/L (3.5-5.1); Protein, Total 6.5 g/dL (6.0-8.3); Sodium 139 mmol/L (136-145)
--- NOTE | 2019-12-16 18:34 | RAD ---
PROCEDURE: XR Lumbar Punct Only W/Fluoro PROVIDED CLINICAL HISTORY: Fever and headache. COMPARISON: None TECHNIQUE: The procedure including the risks and complications were explained to the patient, and informed conse nt was obtained. Patient was placed on the fluoroscopy table in the prone position. An area was marked overlying the L2-3 level and meticulously prepped and draped in usual fashion. Skin and subcutaneous tissues were infiltrated with buffered 1% lidocaine for local anesthesia. Utili zing fluoroscopic guidance, a 22-gauge spinal needle was advanced into the thecal sac. The inner stylette was removed with a return of clear cerebral spinal fluid. An opening pressure of [address] was obtained. Approximately 7.75 mL of clear cerebral spinal fluid was collected. The inner stylette was replaced, and the needle was removed. Hemostasis was achieved with direct pres sure. A dry sterile dressing was placed at puncture site. The patient tolerated the procedure well and without immediate complication. Patient was transported back to the emergency department in stabl e condition. IMPRESSION: 1. Technically successful lumbar puncture. Approximately 7.75 mL of clear cerebral spinal fluid was c ollected. 2. An opening pressure of 13 cm of water was obtained.
[2019-12-16 20:20] LABS: Unspun CSF Color COLORLESS (Colorless)
[2019-12-16 20:21] LABS: Color Of CSF Supernatant COLORLESS (Colorless); Tube # 2
[2019-12-16 20:31] LABS: CSF, Glucose 54 mg/dl (40-70); CSF, Protein 50 mg/dL (15-40)
[2019-12-16] MEDS ORDERED: Ondansetron PF 4 MG/2 ML Vial ONE (21:22)
[2019-12-16] MEDS ORDERED: Ondansetron PF 4 MG/2 ML Vial IVP PRN (22:11)
[2019-12-16] MEDS ORDERED: Acetaminophen 325 MG TAB PO PRN (22:11)
[2019-12-16] MEDS ORDERED: Ondansetron ODT 4 MG TAB SL PRN (22:11)
[2019-12-16] MEDS ORDERED: Sodium Chloride 0.9% 1,000 ML IV SCH (22:11)
--- NOTE | 2019-12-16 22:15 | HP ---
CHIEF COMPLAINT: Possible meningitis. HISTORY OF PRESENT ILLNESS: The patient is a 64-year-old female, who has been ill with fever, chills, fatigue, anorexia and severe headaches that she states are "the worst headaches of my life" associated with photophobia, rhinorrhea, and stiff neck. She has also had a mild cough. Most recently, she developed a diffuse petechial rash. She came to see Dr. Khalil in his office on the day of admission, where his nurse practitioner evaluated the patient, reported to Dr. Khalil who referred the patient to the emergency room for further testing. In the emergency room, she was noted again to have the aforementioned features as well as stiff neck and was thought to possibly have meningitis. At this point, Dr. Khalil was contacted and we are awaiting lumbar puncture. A CT scan has been done, which is unremarkable. PAST MEDICAL HISTORY: Significant for previous admission in June of this year for altered mental status, which turned out to be a toxic encephalopathy due to mismanagement of medication and dehydration. The past medical history is also significant for dyslipidemia, hypothyroidism, restless legs syndrome, menopausal syndrome, neurodermatitis, onychomycosis, recurrent migraines and chronic neck pain. She may also have PBA as well, pseudobulbar affect with inappropriate crying. PAST SURGICAL HISTORY: Includes right foot surgery, left hand surgery, hysterectomy. PSYCHIATRIC HISTORY: Extensive with 2 severe episodes of posttraumatic stress disorder with subsequent severe anxiety disorder and chronic depression. She also has bipolar type 2 disorder. SOCIAL HISTORY: She is and never has participated in illicit drug use or smoking. She does not drink as well. ALLERGIES: SHE IS ALLERGIC TO SULFA. MEDICATIONS ON ADMISSION: Include: 1. Wellbutrin 150 mg daily. 2. Buspirone 30 mg b.i.d. 3. Estradiol 1 mg daily. 4. Lamictal 100 mg daily. 5. Levothyroxine 50 mcg daily. 6. Lorazepam 0.5 mg q.12 hours p.r.n. 7. Mometasone 1% external cream. 8. Terbinafine 250 mg daily. REVIEW OF SYSTEMS: GENERAL: Significant for fever and chills, fatigue. HEENT: Has had profuse rhinorrhea, but no other lesions in eyes, ears, nose, or throat. CHEST: Denies shortness of breath, does admit to coughing. CARDIOVASCULAR: Denies palpitations or chest pain. GI: Admits to nausea, but no vomiting or diarrhea. : Denies blood in urine or stool or dysuria or frequency. MUSCULOSKELETAL: Has chronic generalized aches and pains. SKIN: Recent arrival of petechial rash on her torso. NEUROLOGIC: Her mentation is intact. She admits to severe headache with severe photophobia. ENDOCRINE: Denies any edema, orestes enlargement, polyuria, polydipsia. PHYSICAL EXAMINATION: At the time of admission: VITAL SIGNS: Blood pressure is 134/82, respirations 16, pulse 74, temperature 98.8, O2 saturation at 98% on room air. Pain scale at a 9/10 with pain elicited on attempted neck flexion. HEENT: Normocephalic, atraumatic. Pupils are equal, round, and reactive to light. Extraocular muscles are intact. TMs, nares, pharynx are clear. NECK: Stiff and very painful to attempt flexation. CHEST: Clear to auscultation. BREASTS: Deferred. HEART: Regular rate and rhythm without murmur. ABDOMEN: Soft without organomegaly. Nontender to exam. : Deferred. EXTREMITIES: Without clubbing, cyanosis, or edema. Normal range of motion present. SKIN: With the aforementioned petechial rash in her trunk, forehead, chest and back. NEUROLOGIC: Cranial nerves are intact, unable to test gait and cerebral function. Sensory exam is grossly intact. Mental status is at baseline. LABORATORY DATA: Lab work thus far shows WBCs diminished at 2.0, hemoglobin 12.2, hematocrit 37.3 with platelets at 186. Sedimentation rate at 21. Sodium 139, potassium 3.7, chloride 108, CO2 of 23, BUN 12, creatinine 0.8 with a GFR 67, glucose 125, lactic acid 1.1. Liver functions unremarkable. C-reactive protein is elevated at 0.89. IMAGING: CT of the head is unremarkable. Fluid from her spinal tap showed a protein elevated at 50, glucose 54. It was colorless. Remainder of her lab is currently pending. ASSESSMENT: 1. Possible meningitis. 2. Migraine syndrome. PLAN: Cultures have been taken. Antibiotics begun. We will await further testing and results of cultures. We will continue the antibiotics in the interim. She will be serially examined and we will treat her symptomatically for her headache and nausea. Job ID: [id number]
[2019-12-16] MEDS: Dextrose 5 % And 0.9 % NaCl 1,000 ML IV SCH (22:42)
[2019-12-16 22:48] VITALS: BMI 32.1
[2019-12-16] MEDS: Acetaminophen 325 MG TAB PO PRN (23:59)
[2019-12-17] MEDS: Fentanyl 100 MCG/2 ML VIAL SLOW IVP PRN ×6 (01:13→22:00)
[2019-12-17] MEDS: Ondansetron PF 4 MG/2 ML Vial IVP PRN ×2 (04:15→11:14)
[2019-12-17] MEDS: Acetaminophen 325 MG TAB PO PRN (04:21)
[2019-12-17] MEDS: Dextrose 5 % And 0.9 % NaCl 1,000 ML IV SCH ×3 (05:45→20:58)
[2019-12-17] MEDS: Levothyroxine Sodium 50 MCG TAB PO SCH (05:46)
[2019-12-17] MEDS ORDERED: cloNIDine 0.1 MG TAB PO PRN (07:46)
[2019-12-17 08:32] LABS: #Lymphocytes 0.5 thou/uL (1.20-3.40); #Monocytes 0.2 thou/uL (0.11-0.59); #Neutrophils 1.4 thou/uL (1.40-6.50); %Basophils 0.2 % (0.0-1.0); %Eosinophils 0.7 % (0.0-10.0); %Lymphocytes 25.3 % (21.0-51.0); %Monocytes 7.7 % (0.0-10.0); %Neutrophils 66.2 % (42.0-75.0); Hemoglobin 11.2 g/dL (12.0-16.0); Mean Corpuscular HGB CONC 31.7 g/dL (32.0-36.0); Mean Corpuscular Hemoglobin 29.3 pg (27.0-31.0); Mean Corpuscular Volume 92.3 fL (78.0-98.0); Mean Platelet Volume 8.5 fL (7.4-10.4); Platelet Count 165 thou/uL (130-400); RBC Distribution Width 12.5 % (11.5-14.5); Red Blood Cell (RBC) Count 3.81 mill/uL (4.20-5.40); White Blood Cell (WBC) Count 2.1 thou/uL (4.8-10.8)
[2019-12-17 08:52] LABS: Anion Gap 10 mmol/L (10-20); BUN (Urea Nitrogen) 7 mg/dL (9.8-20.1); Calc. Creatinine Clearance 105 mL/min (70-130); Calcium 7.8 mg/dL (7.8-10.44); Carbon Dioxide 22 mmol/L (23-31); Chloride 109 mmol/L (98-107); Estimated GFR-MDRD 78; Glucose 105 mg/dL (80-115); Potassium 3.6 mmol/L (3.5-5.1); Sodium 137 mmol/L (136-145)
[2019-12-17] MEDS: busPIRone HCl 10 MG TAB PO SCH ×2 (09:19→20:58)
[2019-12-17] MEDS: Estradiol 1 MG TAB PO SCH (09:19)
[2019-12-17] MEDS: FLUoxetine HCl 20 MG CAP PO SCH (09:20)
[2019-12-17] MEDS: cloNIDine 0.1 MG TAB PO SCH ×2 (09:20→20:58)
[2019-12-17] MEDS: lamoTRIgine 100 MG TAB PO SCH (09:20)
[2019-12-17] MEDS: Bupropion 150 MG XL TAB PO SCH (09:20)
[2019-12-17] MEDS: cefTRIAXone\\ROCEPHIN 2 GM in Sodium Chloride 0.9% 100 ML IVPB SCH (09:20)
[2019-12-17 11:49] LABS: SARS-CoV-2 MS2 Positive; SARS-CoV-2 N Gene Negative; SARS-CoV-2 S Gene Negative; SARS-CoV-2 by NAA Not Detected (NotDetected); SARS-CoV-2 orf1ab Negative
[2019-12-17] MEDS: Lorazepam 1 MG TAB PO PRN (15:45)
[2019-12-17] MEDS: rOPINIRole HCl 1 MG TAB PO SCH ×2 (20:57→21:14)
[2019-12-17] MEDS: Rosuvastatin 10 MG TAB PO SCH (20:58)
[2019-12-18] MEDS: Fentanyl 100 MCG/2 ML VIAL SLOW IVP PRN ×5 (02:46→22:18)
[2019-12-18] MEDS: Dextrose 5 % And 0.9 % NaCl 1,000 ML IV SCH ×2 (05:46→17:56)
[2019-12-18] MEDS: Levothyroxine Sodium 50 MCG TAB PO SCH (05:47)
[2019-12-18 05:59] LABS: #Lymphocytes 0.8 thou/uL (1.20-3.40); #Monocytes 0.3 thou/uL (0.11-0.59); #Neutrophils 0.7 thou/uL (1.40-6.50); %Basophils 0.3 % (0.0-1.0); %Eosinophils 2.1 % (0.0-10.0); %Lymphocytes 43.1 % (21.0-51.0); %Monocytes 14.5 % (0.0-10.0); Hemoglobin 10.4 g/dL (12.0-16.0); Mean Corpuscular HGB CONC 31.7 g/dL (32.0-36.0); Mean Corpuscular Hemoglobin 29.3 pg (27.0-31.0); Mean Corpuscular Volume 92.6 fL (78.0-98.0); Platelet Count 143 thou/uL (130-400); RBC Distribution Width 12.6 % (11.5-14.5); Red Blood Cell (RBC) Count 3.53 mill/uL (4.20-5.40); White Blood Cell (WBC) Count 1.8 thou/uL (4.8-10.8)
[2019-12-18 06:21] LABS: Anion Gap 8 mmol/L (10-20); BUN (Urea Nitrogen) Less than 4 mg/dL (9.8-20.1); Calc. Creatinine Clearance 112 mL/min (70-130); Calcium 8.4 mg/dL (7.8-10.44); Carbon Dioxide 24 mmol/L (23-31); Chloride 111 mmol/L (98-107); Estimated GFR-MDRD 84; Glucose 110 mg/dL (80-115); Potassium 3.4 mmol/L (3.5-5.1); Sodium 140 mmol/L (136-145)
[2019-12-18] MEDS: Ondansetron PF 4 MG/2 ML Vial IVP PRN ×2 (08:44→19:22)
[2019-12-18] MEDS: cefTRIAXone\\ROCEPHIN 2 GM in Sodium Chloride 0.9% 100 ML IVPB SCH (08:46)
[2019-12-18 12:22] LABS: CSF Source CSF; Clarity Clear (Clear); Tube # 4
[2019-12-18] MEDS: FLUoxetine HCl 20 MG CAP PO SCH (12:57)
[2019-12-18] MEDS: Estradiol 1 MG TAB PO SCH (13:19)
[2019-12-18] MEDS: busPIRone HCl 10 MG TAB PO SCH ×2 (13:19→20:50)
[2019-12-18] MEDS: Bupropion 150 MG XL TAB PO SCH (13:20)
[2019-12-18] MEDS: cloNIDine 0.1 MG TAB PO SCH ×3 (13:20→21:32)
[2019-12-18] MEDS: lamoTRIgine 100 MG TAB PO SCH (13:20)
[2019-12-18] MEDS: Acetaminophen 325 MG TAB PO PRN ×2 (13:22→17:55)
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
[2019-12-18] MEDS: Rosuvastatin 10 MG TAB PO SCH (20:50)
[2019-12-18] MEDS: rOPINIRole HCl 1 MG TAB PO SCH (20:53)
[2019-12-19] MEDS: Dextrose 5 % And 0.9 % NaCl 1,000 ML IV SCH ×3 (02:14→17:18)
[2019-12-19] MEDS: Fentanyl 100 MCG/2 ML VIAL SLOW IVP PRN ×5 (02:15→17:17)
[2019-12-19] MEDS: Ondansetron PF 4 MG/2 ML Vial IVP PRN ×3 (02:16→15:06)
[2019-12-19] MEDS: Levothyroxine Sodium 50 MCG TAB PO SCH (05:47)
[2019-12-19 05:56] LABS: #Lymphocytes 0.9 thou/uL (1.20-3.40); #Monocytes 0.3 thou/uL (0.11-0.59); #Neutrophils 1.4 thou/uL (1.40-6.50); %Basophils 0.5 % (0.0-1.0); %Eosinophils 1.3 % (0.0-10.0); %Lymphocytes 34.2 % (21.0-51.0); Hemoglobin 10.5 g/dL (12.0-16.0); Mean Corpuscular HGB CONC 32.6 g/dL (32.0-36.0); Mean Corpuscular Hemoglobin 30.1 pg (27.0-31.0); Mean Platelet Volume 8.5 fL (7.4-10.4); Platelet Count 156 thou/uL (130-400); RBC Distribution Width 12.7 % (11.5-14.5); White Blood Cell (WBC) Count 2.5 thou/uL (4.8-10.8)
[2019-12-19 06:14] LABS: Anion Gap 9 mmol/L (10-20); BUN (Urea Nitrogen) 4 mg/dL (9.8-20.1); Calc. Creatinine Clearance 111 mL/min (70-130); Calcium 8.5 mg/dL (7.8-10.44); Carbon Dioxide 26 mmol/L (23-31); Chloride 111 mmol/L (98-107); Estimated GFR-MDRD 83; Glucose 122 mg/dL (80-115); Potassium 3.7 mmol/L (3.5-5.1); Sodium 142 mmol/L (136-145)
[2019-12-19] MEDS: cloNIDine 0.1 MG TAB PO SCH ×2 (08:11→20:44)
[2019-12-19] MEDS: cefTRIAXone\\ROCEPHIN 2 GM in Sodium Chloride 0.9% 100 ML IVPB SCH (08:41)
[2019-12-19] MEDS: FLUoxetine HCl 20 MG CAP PO SCH (08:51)
[2019-12-19] MEDS: Acetaminophen 325 MG TAB PO PRN (09:54)
[2019-12-19] MEDS: Lorazepam 1 MG TAB PO PRN ×2 (10:03→22:04)
[2019-12-19] MEDS: HYDROcodone/Acetaminophen 10/325 mg Tablet PO SCH ×2 (15:04→20:45)
[2019-12-19] MEDS: lamoTRIgine 100 MG TAB PO SCH (15:07)
[2019-12-19] MEDS: busPIRone HCl 10 MG TAB PO SCH ×2 (15:07→20:45)
[2019-12-19] MEDS: Bupropion 150 MG XL TAB PO SCH (15:07)
[2019-12-19] MEDS: Estradiol 1 MG TAB PO SCH (15:07)
--- NOTE | 2019-12-19 15:56 | MRI ---
MR CERVICAL SPINE WITH AND WITHOUT CONTRAST: Indication: 64-year-old female with C spine tenderness and fever. Comparison: Prior CT cervical spine without contrast, 07-13-2019. FINDINGS: 17 cc of MultiHance was utilized for this exam. Motion artifact limits image detail. Visualized aspects of the posterior fossa appear within normal limits. The bone marrow signal intensi ty appears within normal limits. There is no evidence to suggest presence of fracture. The cervical j unction appears within normal limits. C2-3: There is moderate facet joint degenerative change but no appreciable central canal or neural fo raminal narrowing. C3-4: There is facet osteoarthrosis and uncal vertebral hypertrophic inducing moderate left neural fo raminal narrowing. C4-5: There is uncal vertebral facet joint degenerative change inducing moderate left and neural fora aracelis narrowing. C5-6: There is uncal vertebral facet joint degenerative change inducing moderate left and neural fora aracelis narrowing. C6-7: There is no appreciable central canal or neural foraminal narrowing. C7-T1: No appreciable central canal or neural foraminal narrowing. No overt core signal abnormality is evident. No epidural fluid collection is evident. No abnormal enh ancement is grossly evident. IMPRESSION: No acute abnormality. Neural foraminal narrowing as above. POS:
[2019-12-19 16:05] LABS: ANA Symphony (Qualitative) Negative (Negative); ANA Symphony (Quantitative) 0.1 Ratio (< 0.7 Negative); CCP IgG Antibody Less than 0.4 EliAU/mL (<7 Negative); EliA RAS New Method **** NEW METHOD ****; Rheumatoid Factor IgA Antibody 1.7 IU/mL (<14 Negative); Rheumatoid Factor IgM Antibody Less than 0.5 IU/mL (<3.5 Negative); dsDNA IgG Antibody Less than 0.5 IU/mL (<10 Negative)
--- NOTE | 2019-12-19 16:25 | PRG ---
DATE OF SERVICE: SUBJECTIVE: Liner overnight had worsening pain in the back area with what she describes as a point area of tenderness close to the base of the occiput on the left side and she felt unwell, had some vomiting, but now she is feeling better. No respiratory symptoms or abdominal pain. No diarrhea. She remains afebrile after the initial few episodes of temp elevation on admission. O2 saturations are good. She appears in no distress, that diffuse macular eruption is still present. Lungs are clear. S1 and S2, regular rate. Abdomen is soft, not distended or tender. No ascites. No bladder distention. The white cell count is 2.5, hemoglobin 10.5, platelets 156. Creatinine 0.71. Serology is pending for [place]. The patient had a cervical spine MRI and this demonstrated no obvious abnormalities noted. This was with and without contrast, just some degenerative changes. ASSESSMENT AND DISCUSSION: History of some form of arthritis, probably osteoarthritis, hypothyroidism, and neck pain, diffuse macular rash, fever, leukopenia. Now that the spine seems to be normal or at least with just degenerative disease without any acute inflammatory process on MRI. Then, our attention turns to [place] and intracellular bacteria such as Borrelia species, Bartonella, Rickettsia, and so one. We will add doxycycline to regimen and check assays for those. Job ID: [id number]
[2019-12-19] MEDS ORDERED: HYDROcodone/Acetaminophen 10/325 mg Tablet PO SCH (17:00)
[2019-12-19] MEDS: Promethazine 25 MG TAB PO SCH ×2 (17:17→20:44)
[2019-12-19] MEDS: Doxycycline 100 MG CAP PO SCH (20:43)
[2019-12-19] MEDS: rOPINIRole HCl 1 MG TAB PO SCH (20:43)
[2019-12-19] MEDS: Rosuvastatin 10 MG TAB PO SCH (20:47)
[2019-12-20] MEDS: Dextrose 5 % And 0.9 % NaCl 1,000 ML IV SCH ×4 (01:30→14:40)
[2019-12-20] MEDS: HYDROcodone/Acetaminophen 10/325 mg Tablet PO SCH (02:12)
[2019-12-20] MEDS: Levothyroxine Sodium 50 MCG TAB PO SCH (04:59)
[2019-12-20] MEDS ORDERED: Promethazine 25 MG TAB PO PRN (08:18)
[2019-12-20] MEDS: busPIRone HCl 10 MG TAB PO SCH ×2 (08:29→20:18)
[2019-12-20] MEDS: Bupropion 150 MG XL TAB PO SCH (08:30)
[2019-12-20] MEDS: cloNIDine 0.1 MG TAB PO SCH ×2 (08:30→20:21)
[2019-12-20] MEDS: lamoTRIgine 100 MG TAB PO SCH (08:30)
[2019-12-20] MEDS: Estradiol 1 MG TAB PO SCH (08:30)
[2019-12-20] MEDS: cefTRIAXone\\ROCEPHIN 2 GM in Sodium Chloride 0.9% 100 ML IVPB SCH (08:30)
[2019-12-20] MEDS: HYDROcodone/Acetaminophen 10/325 mg Tablet PO PRN ×2 (08:33→14:39)
[2019-12-20] MEDS: Doxycycline 100 MG CAP PO SCH ×2 (08:49→20:20)
[2019-12-20 12:37] LABS: Reference Lab Name LABCORP
[2019-12-20 12:38] LABS: Reference Lab Name LABCORP
[2019-12-20] MEDS: Acetaminophen 325 MG TAB PO PRN (13:55)
[2019-12-20 19:54] VITALS: TEMP 98.3
[2019-12-20] MEDS: Rosuvastatin 10 MG TAB PO SCH (20:19)
[2019-12-20] MEDS: Lorazepam 1 MG TAB PO PRN (20:20)
[2019-12-20] MEDS: rOPINIRole HCl 1 MG TAB PO SCH (20:20)
[2019-12-20 20:26] VITALS: BP 132/72
[2019-12-21 13:39] LABS: West Nile Virus IgG Ab - CSF Negative (Negative); West Nile Virus IgM Ab - CSF Negative (Negative)
[2019-12-22 13:38] LABS: Bartonella henselae IgG Negative titer (Neg:<1:320); Bartonella henselae IgM Negative titer (Neg:<1:100); Bartonella quintana IgG Negative titer (Neg:<1:320); Bartonella quintana IgM Negative titer (Neg:<1:100)
--- NOTE | 2019-12-23 01:00 | PQF ---
Dear : Rayray Foss Date : 12/23/19 Please exercise your independent, professional judgment in responding to the clarification form. Clinical indicators are provided on the bottom of this form for your review Can you please further clarify the etiology of Headache/neck pain? Please check appropriate box(es): [ ] Migraine [ ] Cervical discitis [ ] Cervical Osteoarthritis [ ] Viral infection please specify [ ] Other diagnosis [ ] Unable to determine Physician Signature: Date/Time: For continuity of documentation, please document condition throughout progress notes and discharge summary. Thank You. To be completed by CDI/Coding staff for physician review: Present Clinical Indicators - Signs / Symptoms / Labs Results and Location in Medical Record [ x ] Worst headache, associated with photophobia, rhinorrhea, and stiff neck H and P pg.1 [ x ] Possible meningitis H and P pg.3 [ x ] Migraine syndrome H and P pg.3 [ x ] New onset of severe neck pain radiating to the occiput with marked tenderness associated with fever Consult Dr. Foss pg.2 [ x ] No acute abnormality, neural foraminal narrowing Cervical spine MRI 12/18 [ x ] Bartonella Negative Serology [ x ] Culture result- no growth in 5 days Body fluid culture [ x ] CSF west Nile IgM, IgG- negative Laboratory, other body source [ x ] Differential diagnosis includes local pyogenic infection of the cervical spine with diskitis and osteomyelitis versus viral infection Consult Dr. Foss pg.2 Present Risk Factors Results and Location in Medical Record [ x ] hypothyroidism H and P pg.1 [ x ] Osteoarthtitis PN pg.1 [ x ] dyslipidemia H and P pg.1 [ x ] Recurrent migraines H and P pg.1 [ x ] Bipolar H and P pg.1 [ x ] 64 years old female H and P pg.1 Present Treatments Results and Location in Medical Record [ x ] Lumbar puncture 12/15 Lumbar puncture folder [ x ] Brain CT 12/[address] note [ x ] Infectious consult 12/17 Dr. Foss [ x ] Rocephin 2gm IV MAR [ x ] Tylenol 650mg PO MAR [ x ] Morphine 4mg IV MAR [ x ] IV Fluids MAR [ x ] Cervical spine MRI Cervical spine MRI MTDD
== END 2019-12-20 20:29 | disposition home or self-care (01) | DRG 552 ==
LOC: ERS 15:34 → SURG B 17:55
PROVIDERS: ADMIT Specialist; ATTEND Specialist
PROC: 009U3ZX Drainage of Spinal Canal, Percutaneous Approach, Diagnostic (ICD-10-PCS; principal; 2019-12-16)
DX: M54.2 Cervicalgia (principal); G43.909 Migraine, unspecified, not intractable, without status migrainosus; Z20.828 Contact with and (suspected) exposure to other viral communicable diseases; D64.9 Anemia, unspecified; E03.9 Hypothyroidism, unspecified; M19.90 Unspecified osteoarthritis, unspecified site; F43.10 Post-traumatic stress disorder, unspecified; G25.81 Restless legs syndrome; E78.5 Hyperlipidemia, unspecified; F41.9 Anxiety disorder, unspecified; F32.9 Major depressive disorder, single episode, unspecified; H53.149 Visual discomfort, unspecified; R21 Rash and other nonspecific skin eruption; D72.819 Decreased white blood cell count, unspecified; Z90.710 Acquired absence of both cervix and uterus; Z88.2 Allergy status to sulfonamides; Z78.0 Asymptomatic menopausal state
CPT/HCPCS: 36415; 62270; 70450; 72156; 80048; 80053; 82945; 83520; 83605; 84157; 85025; 85652; 86038; 86140; 86200; 86225; 86611; 86788; 86789; 87070; 87205; 87635; 89051; 96361; 96365; 96375; 96376; J0696; J2270; J2405; J3010; J3490; Q0169; U0003

== ENCOUNTER 2020-06-06 12:07 | Outpatient (CLI) | payer MEDICARE ==
--- NOTE | 2020-06-06 12:34 | RAD ---
XR Shoulder Rt 3 View STANDARD History: Pain Comparison: None. Findings: No acute fracture or malalignment. Mild degenerative disease acromioclavicular joint. Ribs are intact. Impression: No acute osseous abnormality.
== END 2020-06-06 12:08 | disposition home or self-care (01) ==
LOC: BICRAD 12:07
PROVIDERS: ATTEND Specialist
DX: M25.511 Pain in right shoulder (principal)

== ENCOUNTER 2020-06-23 09:45 | Outpatient (CLI) | payer MEDICARE | END 2020-06-23 09:46 | disposition home or self-care (01) | LOC: BICMRI 09:45 | PROVIDERS: ATTEND Specialist | DX: S46.001D Unspecified injury of muscle(s) and tendon(s) of the rotator cuff of right shoulder, subsequent encounter (principal); M25.511 Pain in right shoulder; M19.011 Primary osteoarthritis, right shoulder ==

== ENCOUNTER → 2022-03-29 | Day surgery (SDC) | payer MEDICARE ==
[~2022-03-29] MED LIST: Lidocaine Jelly 2% Urojet 10 ML ONE; Oxymetazoline HCl 0.05% (30 ML BOT) ONE
== END | disposition home or self-care (01) ==
LOC: SDC 13:25
PROVIDERS: ATTEND Surgery
DX: K44.9 Diaphragmatic hernia without obstruction or gangrene (principal); K21.9 Gastro-esophageal reflux disease without esophagitis; K22.2 Esophageal obstruction; I10 Essential (primary) hypertension; Z79.899 Other long term (current) drug therapy; Z88.2 Allergy status to sulfonamides
CPT/HCPCS: 91010; J2001

== ENCOUNTER 2022-04-11 11:10 | Outpatient (CLI) | payer MEDICARE ==
[2022-04-11 13:16] LABS: #Basophils 0.1 10x3/uL (0.0-0.2); #Eosinphils 0.5 10x3/uL (0.0-0.5); #Monocytes 0.4 10x3/uL (0.0-1.1); #Neutrophils 2.3 10x3/uL (1.5-8.4); %Basophils 1.3 % (0.0-2.0); %Eosinophils 10.6 % (0.0-6.0); %Lymphocytes 30.5 % (18.0-47.0); %Monocytes 7.8 % (0.0-10.0); %Neutrophils 49.6 % (40.0-75.0); Hemoglobin 13.4 g/dL (12.0-15.5); Mean Corpuscular HGB CONC 33.2 g/dL (32.0-36.0); Mean Corpuscular Hemoglobin 31.2 pg (27.0-33.0); Platelet Count 240 10x3/uL (150-450); RBC Distribution Width 14.6 % (11.5-14.5); White Blood Cell (WBC) Count 4.7 10x3/uL (3.5-10.5)
[2022-04-11 14:05] LABS: ALT (SGPT) 22 U/L (8-55); AST (SGOT) 18 U/L (5-34); Alkaline Phosphatase 102 U/L (40-110); Anion Gap 15 mmol/L (10-20); BUN (Urea Nitrogen) 16 mg/dL (9.8-20.1); Bilirubin, Total 0.3 mg/dL (0.2-1.2); Calc. Creatinine Clearance 0 mL/min (70-130); Calcium 8.8 mg/dL (7.8-10.44); Carbon Dioxide 23 mmol/L (23-31); Chloride 108 mmol/L (98-107); Estimated GFR 77; Globulin 2.5 g/dL (2.4-3.5); Glucose 71 mg/dL (80-115); Potassium 4.6 mmol/L (3.5-5.1); Protein, Total 6.5 g/dL (5.8-8.1); Sodium 141 mmol/L (136-145)
== END 2022-04-11 11:11 | disposition home or self-care (01) ==
LOC: LABBT 11:10
PROVIDERS: ATTEND Surgery
DX: Z01.818 Encounter for other preprocedural examination (principal); K44.9 Diaphragmatic hernia without obstruction or gangrene
CPT/HCPCS: 80053; 85025; 93005; 93010

== ENCOUNTER 2022-04-11 11:15 | Inpatient (IN) | payer MEDICARE ==
[2022-04-12 11:05] VITALS: BMI 31.6
[2022-04-15 09:02] LABS: SARS-CoV-2 NAA Rapid Test Not Detected (NotDetected)
[2022-04-15] MEDS ORDERED: Bupivacaine/Epinephrine 0.25% 30 ML VIAL ONE (10:02)
[2022-04-15] MEDS ORDERED: fentaNYL PF 100 MCG/2 ML SYRINGE ONE (10:11)
[2022-04-15] MEDS ORDERED: SUGAMMADEX SODIUM 200 MG/2 ML VIAL ONE (10:11)
[2022-04-15] MEDS ORDERED: Famotidine/PF 20 mg/2ml Vial ONE (10:11)
[2022-04-15] MEDS ORDERED: CEFAZOLIN 2 GM VIAL ONE (10:15)
[2022-04-15] MEDS ORDERED: Sodium Chloride 0.9% 100 ML ONE (10:15)
[2022-04-15] MEDS ORDERED: Ketorolac Tromethamine 30 MG/ML VIAL ONE (10:20)
[2022-04-15] MEDS ORDERED: Dexamethasone 20 MG/5 ML VIAL ONE (10:20)
[2022-04-15] MEDS ORDERED: PROPOFOL 200 MG/20 ML VIAL ONE (10:20)
[2022-04-15] MEDS ORDERED: ePHEDrine 50 MG/ML VIAL ONE (10:20)
[2022-04-15] MEDS ORDERED: Rocuronium Bromide 10 MG/ML (10ML VIAL) ONE (10:20)
[2022-04-15] MEDS ORDERED: Ondansetron PF 4 MG/2 ML Vial ONE (10:20)
[2022-04-15] MEDS ORDERED: NEOSTIGMINE 3 MG/3 ML SYR 3 MG/3 ML SYRINGE ONE (10:20)
[2022-04-15] MEDS ORDERED: Glycopyrrolate 0.2 MG/ML 5 ML SYRINGE ONE (10:20)
[2022-04-15] MEDS ORDERED: Morphine 4 MG/ML VIAL SLOW IVP PRN ×2 (12:56→13:03)
[2022-04-15] MEDS ORDERED: diphenhydrAMINE 50 MG/ML VIAL IVP PRN (12:56)
[2022-04-15] MEDS ORDERED: Ondansetron PF 4 MG/2 ML Vial IVP PRN (12:56)
[2022-04-15] MEDS ORDERED: hydrALAZINE 20 MG/ML VIAL SLOW IVP PRN (12:56)
[2022-04-15] MEDS ORDERED: Promethazine HCl 25 MG/ML VIAL IM PRN ×2 (12:56→13:08)
[2022-04-15] MEDS ORDERED: Dextrose 50% Abboject 50 ML SYRINGE SLOW IVP PRN (12:56)
[2022-04-15] MEDS ORDERED: Dextrose 5% in Water 1,000 ML IV PRN (12:56)
[2022-04-15] MEDS ORDERED: Ondansetron HCl/PF 4 MG/2 ML Vial IVP PRN (13:08)
[2022-04-15] MEDS ORDERED: Promethazine HCl 25 MG/ML VIAL IVPB PRN (13:08)
[2022-04-15] MEDS ORDERED: FENTANYL 50 MCG/ML 1 ML VIAL ONE ×4 (13:15→14:06)
[2022-04-15] MEDS: Hydrocodone-Acetamin 15 ML UDCUP PO PRN ×2 (16:21→20:26)
[2022-04-15] MEDS: D5 1/2 NS w/20 mEq KCL 1,000 ML IV SCH ×2 (16:21→20:23)
[2022-04-15] MEDS: Ketorolac Tromethamine 30 MG/ML VIAL IVP SCH ×2 (18:08→23:50)
[2022-04-15] MEDS: CEFAZOLIN 2 GM in Sodium Chloride 0.9% 100 ML IVPB SCH (18:08)
[2022-04-16] MEDS: Hydrocodone-Acetamin 15 ML UDCUP PO PRN ×2 (00:34→05:21)
[2022-04-16] MEDS: CEFAZOLIN 2 GM in Sodium Chloride 0.9% 100 ML IVPB SCH (02:35)
[2022-04-16] MEDS: D5 1/2 NS w/20 mEq KCL 1,000 ML IV SCH (02:49)
[2022-04-16] MEDS: Ketorolac Tromethamine 30 MG/ML VIAL IVP SCH ×2 (05:20→11:57)
[2022-04-16 05:47] LABS: #Lymphocytes 0.9 thou/uL (1.20-3.40); #Monocytes 0.4 thou/uL (0.11-0.59); #Neutrophils 5.7 thou/uL (1.40-6.50); %Eosinophils 0.1 % (0.0-10.0); %Monocytes 6.1 % (0.0-10.0); %Neutrophils 80.8 % (42.0-75.0); Hemoglobin 12.3 g/dL (12.0-16.0); Mean Corpuscular HGB CONC 32.3 g/dL (32.0-36.0); Mean Corpuscular Hemoglobin 31.3 pg (27.0-31.0); Mean Corpuscular Volume 96.7 fl (78.0-98.0); Mean Platelet Volume 8.5 fL (7.4-10.4); Platelet Count 165 10x3/uL (130-400); Red Blood Cell (RBC) Count 3.94 mill/uL (4.20-5.40)
[2022-04-16 06:02] LABS: Anion Gap 10 mmol/L (10-20); BUN (Urea Nitrogen) 13 mg/dL (9.8-20.1); Calc. Creatinine Clearance 93 mL/min (70-130); Calcium 8.6 mg/dL (7.8-10.44); Carbon Dioxide 27 mmol/L (23-31); Chloride 106 mmol/L (98-107); Estimated GFR 80; Glucose 104 mg/dL (80-115); Potassium 4.3 mmol/L (3.5-5.1); Sodium 139 mmol/L (136-145)
[2022-04-16] MEDS ORDERED: Pantoprazole 40 MG VIAL IVP SCH (09:00)
[2022-04-16] MEDS ORDERED: Enoxaparin Sodium 40 MG/0.4 ML SYRINGE SC SCH (09:00)
[2022-04-16 12:42] VITALS: BP 168/90; TEMP 97
== END 2022-04-16 12:42 | disposition home or self-care (01) | DRG 328 ==
LOC: SURG A 04-15 07:30 → SURG B 04-15 14:43
PROVIDERS: ADMIT Surgery; ATTEND Surgery
PROC: 0BUT4JZ Supplement Diaphragm with Synthetic Substitute, Percutaneous Endoscopic Approach (ICD-10-PCS; principal; 2022-04-15)
DX: K44.9 Diaphragmatic hernia without obstruction or gangrene (principal); K21.9 Gastro-esophageal reflux disease without esophagitis; Z20.822 Contact with and (suspected) exposure to COVID-19; K22.2 Esophageal obstruction; I10 Essential (primary) hypertension; F32.A Depression, unspecified; F43.10 Post-traumatic stress disorder, unspecified; G43.909 Migraine, unspecified, not intractable, without status migrainosus; F41.9 Anxiety disorder, unspecified; E78.00 Pure hypercholesterolemia, unspecified; E03.9 Hypothyroidism, unspecified; Z79.899 Other long term (current) drug therapy; Z79.890 Hormone replacement therapy; Z88.2 Allergy status to sulfonamides
CPT/HCPCS: 36415; 74240; 80048; 85025; C1781; C9113; J1100; J1650; J1885; J2405; J2704; J3010; J3480; J3490; S0028; U0002

== ENCOUNTER 2022-07-31 07:45 | Outpatient (CLI) | payer MEDICARE | END 2022-07-31 07:46 | disposition home or self-care (01) | LOC: NM 07:45 | PROVIDERS: ATTEND Internal Medicine Gastroenterology | DX: R10.13 Epigastric pain (principal); K30 Functional dyspepsia | CPT/HCPCS: 78264; A9541 ==

== ENCOUNTER 2023-03-27 07:18 | Outpatient (CLI) | payer MEDICARE | END 2023-03-27 07:19 | disposition home or self-care (01) | LOC: BICULT 07:18 | PROVIDERS: ATTEND Internal Medicine Gastroenterology | DX: R15.9 Full incontinence of feces (principal); R19.7 Diarrhea, unspecified; K31.84 Gastroparesis; R14.0 Abdominal distension (gaseous); K76.0 Fatty (change of) liver, not elsewhere classified | CPT/HCPCS: 76705 ==

== ENCOUNTER 2023-10-02 10:00 | Outpatient (CLI) | payer MEDICARE | END 2023-10-02 10:01 | disposition home or self-care (01) | LOC: BICMAMMO 10:00 | PROVIDERS: ATTEND Specialist | DX: Z12.31 Encounter for screening mammogram for malignant neoplasm of breast (principal); Z91.89 Other specified personal risk factors, not elsewhere classified | CPT/HCPCS: 77063; 77067 ==

== ENCOUNTER 2023-11-14 10:22 | Outpatient (CLI) | payer MEDICARE ==
[2023-11-14] MEDS ORDERED: Barium Sulfate 96% 176 GM BOT (xray ONLY) ONE (10:45)
[2023-11-14] MEDS ORDERED: E-Z-HD 98% W/W 340GM BOT (x-ray ONLY) ONE (10:45)
== END 2023-11-14 10:23 | disposition home or self-care (01) ==
LOC: RAD 10:22
PROVIDERS: ATTEND Internal Medicine Gastroenterology
DX: R13.10 Dysphagia, unspecified (principal); K31.84 Gastroparesis; K22.89 Other specified disease of esophagus; Z98.890 Other specified postprocedural states
CPT/HCPCS: 74220

== ENCOUNTER 2025-04-08 10:05 | Outpatient (CLI) | payer MEDICARE | END 2025-04-08 10:06 | disposition home or self-care (01) | LOC: BICRAD 10:05 | PROVIDERS: ATTEND Specialist | DX: M47.812 Spondylosis without myelopathy or radiculopathy, cervical region (principal); M47.816 Spondylosis without myelopathy or radiculopathy, lumbar region; M43.12 Spondylolisthesis, cervical region; M48.02 Spinal stenosis, cervical region; M41.9 Scoliosis, unspecified | CPT/HCPCS: 72040; 72100 ==

== ENCOUNTER 2025-05-06 11:12 | Outpatient (CLI) | payer MEDICARE | END 2025-05-06 11:13 | disposition home or self-care (01) | LOC: BICMAMMO 11:12 | PROVIDERS: ATTEND Specialist | DX: Z12.31 Encounter for screening mammogram for malignant neoplasm of breast (principal); N64.89 Other specified disorders of breast; Z91.89 Other specified personal risk factors, not elsewhere classified | CPT/HCPCS: 77063; 77067 ==